=== PATIENT | male | born 1975 | race Caucasian/White ===

== ENCOUNTER 2016-10-02 06:59 | Emergency (ER) | payer OTHER ==
[~2016-10-02] VITALS: Ht 165.1 cm; Wt 61.7 kg
--- NOTE | ~2016-10-02 | EKG ---
[place], [place] ELECTROCARDIOGRAM REPORT NAME: ESTHELA WILLIAM UNIT #: [id number] ROOM: DOCTOR: ECTOR FLORES MD BIRTHDATE: [birth year] DOS: 10/02/2016 TIME: 0744 hours. Normal sinus rhythm at 81 beats per minute. The tracing is normal. No previous tracing is available for comparison. ECTOR FLORES MD CM:EKGRPT:ELECTROCARDIOGRAM REPORT [id number] ECTOR FLORES MD
[~2016-10-02 06:59] MED LIST: ATARAX25 MG PO; BACTRIM DS 8001 TA1 PO; CEPHALEXIN500 M1 PO; CIPRO500 MG PO; CLARITIN10 MG PO; FLEXERIL10 MG PO; HYDROCODONE BIT1 T11 PO; KEFLEX500 MG PO; MEDROL DOSEPAK4 MG PO; MOTRIN800 MG PO; NORCO 5-325 TA1 EACH PO; PREDNICOT20 MG PO; SEPTRA DS 800 M1 TAB PO; TRAMADOL HCL50 MG PO; VICODIN 5/500 505 MG PO; VISTARIL50 MG PO
[2016-10-02 07:51] LABS: BASO % 0.3 % (0.0-1.0); EOS # 0.4 10*3/uL (0.0-0.4); HEMATOCRIT 39.1 % (42.0-52.0); HEMOGLOBIN 13.3 g/dl (14.0-18.0); LYMPH # 2.1 10*3/uL (1.3-4.4); LYMPH % 15.3 % (27.0-41.0); MEAN CELL VOLUME 86.9 fl (80.0-94.0); MEAN CORPUSCULAR HGB 29.6 pg (27.0-31.0); MEAN PLATELET VOLUME 9.8 fl (9.6-12.3); MONO % 7.3 % (3.0-9.0); NEUT # 9.9 10*3/uL (2.3-7.9); NEUT % 73.8 % (47.0-73.0); PLATELET COUNT AUTOMATED 203 10*3/uL (130-400); RED CELL DISTRI WIDTH 13.6 % (0-14.5); WHITE BLOOD COUNT 13.5 10*3/uL (4.8-10.8)
[2016-10-02 07:59] LABS: PROTHROMBIN TIME 10.5 SECONDS (9.0-12.4)
[2016-10-02 08:09] LABS: ALBUMIN 3.5 gm/dl (3.1-4.5); ALKALINE PHOSPHATASE 90 U/L (45-117); BILIRUBIN, TOTAL 0.5 mg/dl (0.2-1.0); BUN 20 mg/dl (7-24); CARBON DIOXIDE 24 mmol/L (21-32); CHLORIDE 104 mmol/L (98-107); EST GLOM FILT AFRICAN AMERICAN > 60 ml/min; GLUCOSE 106 mg/dL (65-99); MAGNESIUM 2.1 mg/dL (1.5-2.1); SGOT/AST 106 IU/L (3-35); SGPT/ALT 39 U/L (12-78); SODIUM 139 mmol/L (136-145); TOTAL PROTEIN 6.7 gm/dL (6.4-8.2)
[2016-10-02 08:11] LABS: TROPONIN I < 0.015 ng/ml (<0.5)
[2016-10-02 08:37] LABS: BILIRUBIN NEGATIVE (NEGATIVE); BLOOD 2+ (NEGATIVE); CLARITY CLEAR (CLEAR); COLOR YELLOW (YELLOW); GLUCOSE NEGATIVE (NEGATIVE); KETONE TRACE (NEGATIVE); LEUKO ESTERASE NEGATIVE (NEGATIVE); NITRITE NEGATIVE (NEGATIVE); PH 5.5 (5.0-9.0); PROTEIN TRACE (NEGATIVE); UROBILINOGEN 0.2 E.U./dl (0.2-1.0)
[2016-10-02 08:47] LABS: BACTERIA TRACE
[2016-10-02 08:48] LABS: URINE REFLEX COMMENT YES (NO)
[2016-10-02] MEDS ORDERED: TYLENOL325 M1 PO (10:24)
[2016-10-02] MEDS ORDERED: LIDOPATCH1 EACH TP (10:24)
== END 2016-10-02 10:54 | disposition home or self-care (01) ==
LOC: ED 06:59
PROVIDERS: Student in an Organized Health Care Education/Training Program
DX: N20.1 Calculus of ureter (principal); F12.10 Cannabis abuse, uncomplicated; F17.200 Nicotine dependence, unspecified, uncomplicated

== ENCOUNTER 2017-03-19 04:53 | Emergency (ER) | payer OTHER ==
[~2017-03-19] VITALS: Ht 165.1 cm; Wt 61.2 kg
[~2017-03-19 04:53] MED LIST changes: +LIDOPATCH1 EACH TP; +TYLENOL325 M1 PO
[2017-03-19] MEDS ORDERED: KEFLEX500 M1 PO (05:22)
[2017-03-19] MEDS ORDERED: PREDNISONE10 MG PO (05:22)
[2017-03-19] MEDS ORDERED: ATARAX,VISTARIL50 MG PO ×2 (05:24→05:46)
== END 2017-03-19 06:02 | disposition home or self-care (01) ==
LOC: ED 04:53
DX: L25.5 Unspecified contact dermatitis due to plants, except food (principal); F12.10 Cannabis abuse, uncomplicated; F17.200 Nicotine dependence, unspecified, uncomplicated

== ENCOUNTER 2017-04-29 17:33 | Emergency (ER) | payer OTHER ==
[~2017-04-29] VITALS: Ht 165.1 cm; Wt 61.2 kg
[~2017-04-29 17:33] MED LIST changes: +ATARAX,VISTARIL50 MG PO; +KEFLEX500 M1 PO; +PREDNISONE10 MG PO
[2017-04-29] MEDS ORDERED: ZYRTEC10 MG PO (19:35)
[2017-04-29] MEDS ORDERED: OMNICEF300 MG PO (19:35)
== END 2017-04-29 20:00 | disposition home or self-care (01) ==
LOC: ED 17:33
DX: H66.91 Otitis media, unspecified, right ear (principal); F17.200 Nicotine dependence, unspecified, uncomplicated; Z98.890 Other specified postprocedural states

== ENCOUNTER 2017-09-06 13:52 | Emergency (ER) | payer OTHER ==
[~2017-09-06] VITALS: Ht 165.1 cm; Wt 59.0 kg
[~2017-09-06 13:52] MED LIST changes: +OMNICEF300 MG PO; +ZYRTEC10 MG PO
[2017-09-06] MEDS ORDERED: CEFADROXIL500 M1 PO (14:15)
[2017-09-06] MEDS ORDERED: SEPTDS PO (14:15)
== END 2017-09-06 15:10 | disposition home or self-care (01) ==
LOC: ED 13:52
DX: L03.211 Cellulitis of face (principal); F17.200 Nicotine dependence, unspecified, uncomplicated; Z88.1 Allergy status to other antibiotic agents

== ENCOUNTER 2018-05-14 13:59 | Emergency (ER) | payer OTHER ==
[~2018-05-14] VITALS: Ht 165.1 cm; Wt 59.0 kg
[~2018-05-14 13:59] MED LIST changes: +CEFADROXIL500 M1 PO; +SEPTDS PO
[2018-05-14] MEDS ORDERED: PREDNISONE10 MG PO (14:14)
== END 2018-05-14 14:27 | disposition home or self-care (01) ==
LOC: ED 13:59
DX: L23.7 Allergic contact dermatitis due to plants, except food (principal); R03.0 Elevated blood-pressure reading, without diagnosis of hypertension; F17.200 Nicotine dependence, unspecified, uncomplicated; Z88.1 Allergy status to other antibiotic agents; Z98.890 Other specified postprocedural states

== ENCOUNTER 2018-05-17 13:22 | Emergency (ER) | payer OTHER ==
[~2018-05-17] VITALS: Ht 165.1 cm; Wt 59.0 kg
[2018-05-17] MEDS ORDERED: KEFLEX500 M1 PO (13:55)
[2018-05-17] MEDS ORDERED: Bactroban Oint22 GM T (13:55)
[2018-05-17] MEDS ORDERED: SEPTDS PO (13:55)
== END 2018-05-17 14:17 | disposition home or self-care (01) ==
LOC: ED 13:22
DX: L03.114 Cellulitis of left upper limb (principal); R03.0 Elevated blood-pressure reading, without diagnosis of hypertension; F17.200 Nicotine dependence, unspecified, uncomplicated; Z88.1 Allergy status to other antibiotic agents

== ENCOUNTER 2018-06-16 08:47 | Emergency (ER) | payer OTHER ==
[~2018-06-16] VITALS: Ht 160 cm; Wt 56.7 kg
[~2018-06-16 08:47] MED LIST changes: +Bactroban Oint22 GM T
[2018-06-16] MEDS ORDERED: PREDNISONE10 MG PO (09:25)
[2018-06-16] MEDS ORDERED: KEFLEX500 M1 PO (09:25)
== END 2018-06-16 10:44 | disposition home or self-care (01) ==
LOC: ED 08:47
DX: L25.9 Unspecified contact dermatitis, unspecified cause (principal); F17.200 Nicotine dependence, unspecified, uncomplicated; Z88.1 Allergy status to other antibiotic agents

== ENCOUNTER 2019-11-04 07:52 | Inpatient (IN) | payer OTHER ==
[~2019-11-04] VITALS: Ht 162.6 cm; Wt 56.0 kg
[2019-11-04 07:53] VITALS: BP 148/89
[2019-11-04 08:46] VITALS: BP 112/72
[2019-11-04 09:49] LABS: BASO # 0.1 10*3/uL (0.0-0.1); BASO % 0.5 % (0.0-1.0); EOS # 0.4 10*3/uL (0.0-0.4); EOS % 3.1 % (1.0-4.0); HEMATOCRIT 44.5 % (42.0-52.0); HEMOGLOBIN 14.6 g/dl (14.0-18.0); LYMPH # 2.8 10*3/uL (1.3-4.4); LYMPH % 24.1 % (27.0-41.0); MEAN CELL VOLUME 91.2 fl (80.0-94.0); MEAN CORPUSCULAR HGB 29.9 pg (27.0-31.0); MEAN CORPUSCULAR HGB CONC 32.8 g/dl (33.0-37.0); MEAN PLATELET VOLUME 10.7 fl (9.6-12.3); MONO % 8.4 % (3.0-9.0); NEUT # 7.4 10*3/uL (2.3-7.9); NEUT % 63.2 % (47.0-73.0); PLATELET COUNT AUTOMATED 182 10*3/uL (130-400); RED BLOOD COUNT 4.88 10*6/uL (4.50-5.90); WHITE BLOOD COUNT 11.7 10*3/uL (4.8-10.8)
[2019-11-04 09:58] LABS: INTERNATIONAL NORM RATIO 0.9 (2.0-3.5)
[2019-11-04 10:03] LABS: ALBUMIN 3.4 gm/dl (3.1-4.5); ALKALINE PHOSPHATASE 98 U/L (45-117); BUN 9 mg/dl (7-24); CHLORIDE 110 mmol/L (98-107); POTASSIUM 4.1 mmol/L (3.5-5.1); SGOT/AST 38 IU/L (3-35); SGPT/ALT 71 U/L (12-78); SODIUM 142 mmol/L (136-145); TOTAL PROTEIN 6.6 gm/dL (6.4-8.2)
[2019-11-04 10:04] LABS: ETHYL ALCOHOL < 3.0 mg/dl (<3)
[2019-11-04 10:30] VITALS: BP 111/76
[2019-11-04 11:10] LABS: URINE AMPHETAMINES < 1000 (1000ng/ml); URINE BARBITURATES < 200 (200ng/ml); URINE BENZODIAZEPINES > 200 (200ng/ml); URINE CANNABINOIDS (THC) < 50 (50ng/ml); URINE COCAINE < 300 (300ng/ml); URINE METHADONE < 300 (300ng/ml); URINE OPIATES < 300 (300ng/ml)
[2019-11-04 11:11] LABS: BILIRUBIN NEGATIVE (NEGATIVE); BLOOD NEGATIVE (NEGATIVE); CLARITY CLEAR (CLEAR); COLOR YELLOW (YELLOW); GLUCOSE NEGATIVE (NEGATIVE); KETONE NEGATIVE (NEGATIVE); LEUKO ESTERASE NEGATIVE (NEGATIVE); NITRITE NEGATIVE (NEGATIVE); PH 5.5 (5.0-9.0); SPECIFIC GRAVITY 1.015 (1.005-1.030); URINE PHENCYCLIDINE < 25 (25ng/ml); UROBILINOGEN 0.2 E.U./dl (0.2-1.0)
[2019-11-04 16:00] VITALS: BP 119/64
[2019-11-04 20:00] VITALS: BP 129/86
[2019-11-05] VITALS: BP 110/65
[2019-11-05 08:00] VITALS: BP 123/79
== END 2019-11-05 08:35 | disposition left against medical advice (07) | DRG 812 ==
LOC: ED 07:52 → EDHOLD 09:10 → 5E 09:46
PROVIDERS: Internal Medicine; ADMIT Family Medicine
DX: T40.601A Poisoning by unspecified narcotics, accidental (unintentional), initial encounter (principal); G93.41 Metabolic encephalopathy; F17.210 Nicotine dependence, cigarettes, uncomplicated; D72.829 Elevated white blood cell count, unspecified; F19.10 Other psychoactive substance abuse, uncomplicated; E87.8 Other disorders of electrolyte and fluid balance, not elsewhere classified; F11.23 Opioid dependence with withdrawal; Z53.29 Procedure and treatment not carried out because of patient's decision for other reasons; Y92.89 Other specified places as the place of occurrence of the external cause; Z71.6 Tobacco abuse counseling; Z88.2 Allergy status to sulfonamides; Z87.01 Personal history of pneumonia (recurrent); Z82.49 Family history of ischemic heart disease and other diseases of the circulatory system